=== PATIENT | male | born 1985 | race Hispanic/Latino ===

== ENCOUNTER 2018-12-07 20:19 | Emergency (ER) | payer MEDICAID, OTHER | END 2018-12-07 21:10 | disposition left against medical advice (07) | LOC: EDH 20:19 | DX: Z53.21 Procedure and treatment not carried out due to patient leaving prior to being seen by health care provider (principal) ==

== ENCOUNTER 2022-02-26 09:38 | Emergency (ER) | payer MEDICARE, OTHER ==
[~2022-02-26] VITALS: Ht 165.1 cm; Wt 102.1 kg
[2022-02-26] MEDS ORDERED: ACETAMINOPHEN 500 MG TABLET PO ONE (10:00)
[2022-02-26 10:08] LABS: BASOPHILS % (AUTO) 0.7 % (0.0-5.0); HEMATOCRIT 47.2 % (42-54); LYMPHOCYTES % (AUTO) 9.4 % (21.0-51.0); MEAN CORPUSCULAR HEMOGLOBIN 31.3 pg (27.0-33.0); MEAN CORPUSCULAR HGB CONC 34.3 g/dL (32.0-36.0); MEAN CORPUSCULAR VOLUME 91.3 fL (79-99); MONOCYTES % (AUTO) 6.7 % (3.0-13.0); NEUTROPHILS % (AUTO) 80.7 % (40.0-77.0); PLATELET COUNT (AUTO) 217 K/uL (130-400); RED BLOOD CELL COUNT(AUTO) 5.17 MIL/uL (4.50-6.20); RED CELL DISTRIBUTION WIDTH 12.3 % (11.0-15.5); WHITE BLOOD COUNT (AUTO) 7.7 K/uL (4.8-10.8)
[2022-02-26 10:24] LABS: CREATININE 0.8 mg/dL (0.5-1.5); TOTAL PROTEIN, SERUM 7.7 g/dL (6.0-8.3)
[2022-02-26] MEDS ORDERED: KETOROLAC 15MG/ML VIAL (15MG/ML) IV ONE (10:30)
[2022-02-26] MEDS ORDERED: D-ME118S47 PO (10:51)
[2022-02-26] MEDS ORDERED: IBUP-2070 PO (10:51)
[2022-02-26] MEDS ORDERED: OSEL75 PO (10:51)
[2022-02-26 10:55] VITALS: BP 126/78
[2022-02-26 10:58] LABS: APPEARANCE,URINE CLEAR (CLEAR); BILIRUBIN,URINE NEGATIVE (NEGATIVE); COLOR,URINE YELLOW (YELLOW); GLUCOSE, URINE (UA) NEGATIVE (NEGATIVE); KETONES,URINE NEGATIVE (NEGATIVE); LEUKOCYTE ESTERASE ,URINE NEGATIVE Leu/uL (NEGATIVE); NITRATE,URINE NEGATIVE (NEGATIVE); OCCULT BLOOD,URINE TRACE-INTACT (NEGATIVE); PROTEIN,URINE NEGATIVE (NEGATIVE); UROBILINOGEN,URINE 0.2 mg/dL (0.2-1.0)
[2022-02-26 11:15] LABS: BACTERIA,URINE None Seen /HPF (None Seen); RBC,URINE 0-1 /HPF (0-1); SQUAMOUS EPITHELIAL CELL,UR None Seen /HPF (0-2); WBC,URINE None Seen /HPF (0-1)
== END 2022-02-26 11:05 | disposition home or self-care (01) ==
LOC: EDH 09:38
DX: U07.1 COVID-19 (principal); J10.1 Influenza due to other identified influenza virus with other respiratory manifestations; R10.31 Right lower quadrant pain; Z98.890 Other specified postprocedural states
CPT/HCPCS: 99283; 96374; 87635; 80053; 83690; 85025; 87804 ×2; 81001; 36415; C9803; J1885